=== PATIENT | female | born 1955 | race Caucasian/White ===

== ENCOUNTER → 2017-05-19 | Outpatient (CLI) | payer OTHER | LOC: M CLY 11:25 | DX: M75.41 Impingement syndrome of right shoulder (principal) | CPT/HCPCS: 73030 ==

== ENCOUNTER → 2017-05-19 | Outpatient (CLI) | payer OTHER | LOC: M CLY 11:17 | DX: Z53.9 Procedure and treatment not carried out, unspecified reason (principal) ==

== ENCOUNTER → 2018-11-18 | Outpatient (REF) | payer BC | LOC: M SFHCCLAY 16:11 | PROVIDERS: ATTEND Family Medicine | DX: Z98.84 Bariatric surgery status (principal); E53.8 Deficiency of other specified B group vitamins; Z53.9 Procedure and treatment not carried out, unspecified reason ==

== ENCOUNTER → 2018-11-19 | Outpatient (REF) | payer BC ==
[2018-11-19 17:06] LABS: ALBUMIN 3.3 GM/DL (3.2-5.2); ALT/SGPT 17 U/L (12-78); BILIRUBIN,TOTAL 0.2 MG/DL (0.2-1.0); BLOOD UREA NITROGEN 10 MG/DL (7-18); CALCIUM LEVEL 9.2 MG/DL (8.8-10.2); CARBON DIOXIDE LEVEL 29 MEQ/L (21-32); CHLORIDE LEVEL 109 MEQ/L (98-107); CHOLESTEROL LEVEL 190 MG/DL (<200); CHOLESTEROL RISK RATIO 3.333 (<5); CREATININE FOR GFR 0.92 MG/DL (0.55-1.30); GLOMERULAR FILTRATION RATE > 60.0 (>45); GLUCOSE, FASTING 129 MG/DL (70-100); HDL CHOLESTEROL 57 MG/DL (>40); IRON (FE) 28 UG/DL (50-170); LDL CHOLESTEROL 104 MG/DL (<100); NON-HDL-C 133 MG/DL; POTASSIUM SERUM 4.2 MEQ/L (3.5-5.1); SODIUM LEVEL 143 MEQ/L (136-145); TOTAL PROTEIN 6.5 GM/DL (6.4-8.2); TRIGLYCERIDES LEVEL 147 MG/DL (<150)
[2018-11-19 17:13] LABS: VITAMIN B12 LEVEL 161 PG/ML (247-911)
[2018-11-19 17:14] LABS: FOLATE > 24.0 NG/ML (>5.4)
[2018-11-19 17:19] LABS: BASO % 0.1 % (0.0-1.0); EOS # 0.1 10^3/uL (0.0-0.5); EOS % 0.9 % (0.0-3.0); HEMATOCRIT 40.5 % (36.0-47.0); HEMOGLOBIN 12.3 g/dl (12.0-15.5); LYMPH # 2.2 10^3/uL (1.5-5.0); LYMPH % 31.6 % (24.0-44.0); MEAN CORPUSCULAR HEMOGLOBIN 26.9 pg (27.0-33.0); MEAN CORPUSCULAR HGB CONC 30.4 g/dl (32.0-36.5); MEAN CORPUSCULAR VOLUME 88.6 fl (80.0-96.0); MONO # 0.4 10^3/uL (0.0-0.8); MONO % 6.1 % (0.0-5.0); NEUTROPHILS # 4.2 10^3/uL (1.5-8.5); NEUTROPHILS % 61.2 % (36.0-66.0); PLATELET COUNT, AUTOMATED 313 10^3/uL (150-450); RED BLOOD COUNT 4.57 10^6/uL (4.00-5.40); WHITE BLOOD COUNT 6.9 10^3/uL (4.0-10.0)
[2018-11-19 17:32] LABS: HEMOGLOBIN A1c 5.8 %
== END ==
LOC: M SFHCCLAY 13:12
PROVIDERS: ATTEND Family Medicine
DX: Z98.84 Bariatric surgery status (principal); E53.8 Deficiency of other specified B group vitamins

== ENCOUNTER → 2019-11-29 | Outpatient (REF) | payer BC ==
[2019-11-29 17:00] LABS: BASO % 0.3 % (0.0-1.0); EOS # 0.1 10^3/uL (0.0-0.5); EOS % 0.9 % (0.0-3.0); HEMATOCRIT 39.2 % (36.0-47.0); HEMOGLOBIN 11.5 g/dl (12.0-15.5); LYMPH # 2.4 10^3/uL (1.5-5.0); LYMPH % 36.7 % (24.0-44.0); MEAN CORPUSCULAR HEMOGLOBIN 23.6 pg (27.0-33.0); MEAN CORPUSCULAR HGB CONC 29.3 g/dl (32.0-36.5); MEAN CORPUSCULAR VOLUME 80.3 fl (80.0-96.0); MONO # 0.5 10^3/uL (0.0-0.8); NEUTROPHILS # 3.6 10^3/uL (1.5-8.5); NEUTROPHILS % 54.6 % (36.0-66.0); PLATELET COUNT, AUTOMATED 364 10^3/uL (150-450); RED BLOOD COUNT 4.88 10^6/uL (4.00-5.40); WHITE BLOOD COUNT 6.6 10^3/uL (4.0-10.0)
[2019-11-29 17:09] LABS: ALBUMIN 3.5 GM/DL (3.2-5.2); ALT/SGPT 22 U/L (12-78); BILIRUBIN,TOTAL 0.2 MG/DL (0.2-1.0); BLOOD UREA NITROGEN 11 MG/DL (7-18); CARBON DIOXIDE LEVEL 29 MEQ/L (21-32); CHLORIDE LEVEL 106 MEQ/L (98-107); CHOLESTEROL LEVEL 185 MG/DL (<200); CHOLESTEROL RISK RATIO 3.083 (<5); CREATININE FOR GFR 0.88 MG/DL (0.55-1.30); FERRITIN 6 NG/ML (8-252); GLOMERULAR FILTRATION RATE > 60.0 (>45); GLUCOSE, FASTING 93 MG/DL (70-100); HDL CHOLESTEROL 60 MG/DL (>40); IRON (FE) 28 UG/DL (50-170); LDL CHOLESTEROL 80 MG/DL (<100); NON-HDL-C 125 MG/DL; PERCENT SATURATION 6.9 % (13.2-45.0); POTASSIUM SERUM 4.4 MEQ/L (3.5-5.1); SODIUM LEVEL 139 MEQ/L (136-145); TOTAL IRON BINDING CAPACITY 406 UG/DL (250-450); TOTAL PROTEIN 6.8 GM/DL (6.4-8.2); TRIGLYCERIDES LEVEL 225 MG/DL (<150)
[2019-11-30 09:03] LABS: TOTAL 25(OH) VITAMIN D 51.2 NG/ML (30.0-100.0)
[2019-11-30 09:04] LABS: FOLATE > 24.0 NG/ML (>5.4); VITAMIN B12 LEVEL 148 PG/ML (247-911)
== END ==
LOC: M SFHCCLAY 16:32
PROVIDERS: ATTEND Family Medicine
DX: E53.8 Deficiency of other specified B group vitamins (principal); D64.9 Anemia, unspecified; Z98.84 Bariatric surgery status

== ENCOUNTER → 2020-06-18 | Outpatient (CLI) | payer BC ==
--- NOTE | 2020-06-19 02:19 | REP ---
INDICATION: PAIN. COMPARISON: None. TECHNIQUE: AP and weight-bearing lateral views of the mid/hindfoot FINDINGS: Osseous structures demonstrate age-related osteopenia and generalized degenerative changes with cortical irregularities, joint space narrowing, and subtle spurring noted through the midfoot level. Lateral view suggests an element of mild pes planus along with a small to moderate calcaneal heel spur and calcifications along the distal aspect of the Achilles tendon and insertion on the calcaneus. IMPRESSION: Age-related osteopenia and degenerative changes as noted above. <Electronically signed by Pasha Dillard > 06/19/20 0746
== END ==
LOC: M SOG 14:18
PROVIDERS: ATTEND Family Medicine
DX: M85.872 Other specified disorders of bone density and structure, left ankle and foot (principal)

== ENCOUNTER → 2020-12-25 | Outpatient (REF) | payer BC ==
[2020-12-26 11:47] LABS: BASO % 0.3 % (0.0-1.0); EOS % 0.6 % (0.0-3.0); HEMATOCRIT 44.5 % (36.0-47.0); HEMOGLOBIN 14.1 g/dl (12.0-15.5); LYMPH # 2.4 10^3/uL (1.5-5.0); LYMPH % 33.4 % (24.0-44.0); MEAN CORPUSCULAR HEMOGLOBIN 30.5 pg (27.0-33.0); MEAN CORPUSCULAR HGB CONC 31.7 g/dl (32.0-36.5); MEAN CORPUSCULAR VOLUME 96.1 fl (80.0-96.0); MONO # 0.4 10^3/uL (0.0-0.8); MONO % 5.8 % (2.0-8.0); NEUTROPHILS # 4.2 10^3/uL (1.5-8.5); NEUTROPHILS % 59.8 % (36.0-66.0); PLATELET COUNT, AUTOMATED 297 10^3/uL (150-450); RED BLOOD COUNT 4.63 10^6/uL (4.00-5.40)
[2020-12-26 12:10] LABS: HEMOGLOBIN A1c 5.2 %
[2020-12-26 12:26] LABS: ALBUMIN 3.2 GM/DL (3.2-5.2); ALT/SGPT 27 U/L (12-78); BILIRUBIN,TOTAL 0.3 MG/DL (0.2-1.0); BLOOD UREA NITROGEN 9 MG/DL (7-18); CALCIUM LEVEL 8.5 MG/DL (8.8-10.2); CARBON DIOXIDE LEVEL 29 MEQ/L (21-32); CHLORIDE LEVEL 108 MEQ/L (98-107); CHOLESTEROL LEVEL 144 MG/DL (<200); CHOLESTEROL RISK RATIO 2.526 (<5); CREATININE FOR GFR 0.98 MG/DL (0.55-1.30); FERRITIN 221 NG/ML (8-252); GLOMERULAR FILTRATION RATE > 60.0 (>45); GLUCOSE, FASTING 96 MG/DL (70-100); HDL CHOLESTEROL 57 MG/DL (>40); IRON (FE) 60 UG/DL (50-170); LDL CHOLESTEROL 68 MG/DL (<100); MAGNESIUM LEVEL 1.8 MG/DL (1.8-2.4); NON-HDL-C 87 MG/DL; POTASSIUM SERUM 6.1 MEQ/L (3.5-5.1); SODIUM LEVEL 138 MEQ/L (136-145); TOTAL PROTEIN 6.5 GM/DL (6.4-8.2); TRIGLYCERIDES LEVEL 97 MG/DL (<150); VITAMIN B12 LEVEL 863 PG/ML (247-911)
== END ==
LOC: M SFHCCLAY 14:13
PROVIDERS: ATTEND Family Medicine
DX: D50.8 Other iron deficiency anemias (principal); Z98.84 Bariatric surgery status

== ENCOUNTER → 2021-03-28 | Outpatient (CLI) | payer BC | LOC: M SOG 08:07 | PROVIDERS: ATTEND Orthopaedic Surgery Adult Reconstructive Orthopaedic Surgery | DX: M25.762 Osteophyte, left knee (principal); M25.761 Osteophyte, right knee ==

== ENCOUNTER → 2021-11-20 | Outpatient (CLI) | payer BC | LOC: M SOG 11:54 | PROVIDERS: ATTEND Orthopaedic Surgery Adult Reconstructive Orthopaedic Surgery | DX: M17.0 Bilateral primary osteoarthritis of knee (principal) ==

== ENCOUNTER 2021-12-04 09:25 | Outpatient (RCR) | payer BC | END 2021-12-13 | LOC: M PT 09:25 | PROVIDERS: ATTEND Orthopaedic Surgery Adult Reconstructive Orthopaedic Surgery | DX: M17.12 Unilateral primary osteoarthritis, left knee (principal) ==

== ENCOUNTER → 2021-12-16 | Outpatient (REF) | payer BC ==
[2021-12-16 17:34] LABS: BASO % 0.3 % (0.0-1.0); EOS # 0.1 10^3/uL (0.0-0.5); EOS % 0.8 % (0.0-3.0); HEMATOCRIT 43.4 % (36.0-47.0); HEMOGLOBIN 13.5 g/dl (12.0-15.5); LYMPH # 2.4 10^3/uL (1.5-5.0); LYMPH % 32.1 % (24.0-44.0); MEAN CORPUSCULAR HEMOGLOBIN 30.4 pg (27.0-33.0); MEAN CORPUSCULAR HGB CONC 31.1 g/dl (32.0-36.5); MEAN CORPUSCULAR VOLUME 97.7 fl (80.0-96.0); MONO # 0.5 10^3/uL (0.0-0.8); MONO % 6.6 % (2.0-8.0); NEUTROPHILS # 4.5 10^3/uL (1.5-8.5); NEUTROPHILS % 60.1 % (36.0-66.0); PLATELET COUNT, AUTOMATED 309 10^3/uL (150-450); RED BLOOD COUNT 4.44 10^6/uL (4.00-5.40); WHITE BLOOD COUNT 7.5 10^3/uL (4.0-10.0)
[2021-12-16 18:30] LABS: ALBUMIN 3.2 GM/DL (3.2-5.2); ALT/SGPT 18 U/L (12-78); BILIRUBIN,TOTAL 0.2 MG/DL (0.2-1.0); BLOOD UREA NITROGEN 7 MG/DL (7-18); CALCIUM LEVEL 8.9 MG/DL (8.8-10.2); CARBON DIOXIDE LEVEL 29 MEQ/L (21-32); CHLORIDE LEVEL 106 MEQ/L (98-107); CHOLESTEROL LEVEL 175 MG/DL (<200); CREATININE FOR GFR 0.88 MG/DL (0.55-1.30); GLOMERULAR FILTRATION RATE > 60.0 (>45); GLUCOSE, FASTING 91 MG/DL (70-100); HDL CHOLESTEROL 57 MG/DL (>40); IRON (FE) 68 UG/DL (50-170); NON-HDL-C 118 MG/DL; POTASSIUM SERUM 4.3 MEQ/L (3.5-5.1); SODIUM LEVEL 138 MEQ/L (136-145); TOTAL PROTEIN 6.5 GM/DL (6.4-8.2)
[2021-12-16 18:38] LABS: HEMOGLOBIN A1c 5.3 %
[2021-12-16 18:43] LABS: LDL CHOLESTEROL 76 MG/DL (<100); TRIGLYCERIDES LEVEL 209 MG/DL (<150)
[2021-12-16 20:09] LABS: VITAMIN B12 LEVEL 326 PG/ML (247-911)
== END ==
LOC: M SFHCCLAY 09:37
PROVIDERS: ATTEND Family Medicine
DX: D50.8 Other iron deficiency anemias (principal); E53.8 Deficiency of other specified B group vitamins; Z98.84 Bariatric surgery status

== ENCOUNTER → 2021-12-29 | Outpatient (CLI) | payer BC ==
[~2021-12-29] MED LIST: BUPR-71 PO; DICL1GEL3; ESCI5SOL3 PO; NICO1DIS12 TD; OMEP40CA5 PO; VITMTA PO; XARE20TA PO
== END ==
LOC: M LABSMTC 09:36
PROVIDERS: ATTEND Anesthesiology
DX: Z01.812 Encounter for preprocedural laboratory examination (principal); Z11.52 Encounter for screening for COVID-19

== ENCOUNTER 2021-12-31 06:07 | Inpatient (IN) | payer BC ==
[~2021-12-31] VITALS: Ht 162.6 cm; Wt 80.2 kg
[~2021-12-31 06:07] MED LIST changes: +ACETAMINOPHEN 500 MG TAB PO ONE; +NAPROXEN 250 MG TAB PO ONE; +NS 1,000 ML IV ONE; +PREGABALIN 25 MG CAP (LYRICA) PO ONE; +ROPIVA 125MG/EPINEPH 0.25MG/CLONID 40MCG/KETOR 15MG IN NS 50ML SYRINGE PA ONE; +TRANEXAMIC ACID INJection 1,000 MG in NS 60 ML IV ONE; +ceFAZolin SOD 2 GM in IV 1 EA IV ONE; +dexameTHASONE 4 MG/ML 1ML VIAL (J1100 PER 1MG) IV ONE
[2021-12-31] MEDS ORDERED: LR 1,000 ML IV SCH ×3 (06:35→12:35)
[2021-12-31] MEDS ORDERED: TRANEXAMIC ACID 100 MG/ML 10ML VIAL As Ordered ONE (07:24)
[2021-12-31] MEDS ORDERED: fentaNYL 100 MCG/2 ML INJECTION As Ordered ONE (08:03)
[2021-12-31] MEDS ORDERED: propofoL 200 MG/20 ML VIAL As Ordered ONE ×3 (08:03→09:09)
[2021-12-31] MEDS ORDERED: dexameTHASONE 4 MG/ML 1ML VIAL (J1100 PER 1MG) As Ordered ONE (08:03)
[2021-12-31] MEDS ORDERED: MIDAZOLAM INJ 2MG/2ML VIAL (J2250 PER 1MG) As Ordered ONE (08:03)
[2021-12-31] MEDS ORDERED: ONDANSETRON 4MG 2ML VIAL As Ordered ONE (08:03)
[2021-12-31] MEDS ORDERED: PHENYLephrine 500MCG 5ML (100MCG/ML) SYRINGE As Ordered ONE (08:06)
[2021-12-31] MEDS ORDERED: ePHEDrine SULFATE 25 MG/5 ML(5MG/ML) SYRINGE As Ordered ONE (08:08)
[2021-12-31] MEDS ORDERED: oxyCODONE 5MG TAB PO PRN (10:00)
[2021-12-31] MEDS ORDERED: ONDANSETRON 4MG 2ML VIAL IV PRN ×2 (10:00→13:00)
[2021-12-31] MEDS ORDERED: MEPERIDINE INJ 25 MG/ML VIAL (J2175) IV PRN (10:00)
[2021-12-31] MEDS ORDERED: fentaNYL 100 MCG/2 ML INJECTION IV PRN (10:00)
[2021-12-31] MEDS ORDERED: ACETAMINOPHEN TAB 650MG DOSE (2X325MG) PO PRN (12:00)
[2021-12-31] MEDS ORDERED: MAALOX 30 ML SUSP *UDC PO PRN (12:00)
[2021-12-31] MEDS ORDERED: MOM 30ML SUSPENSION UDC PO PRN (12:00)
[2021-12-31] MEDS ORDERED: HOME MED LIST COMPLETE! XX SCH ×2 (12:25→12:40)
[2021-12-31] MEDS ORDERED: LEXA5TAB13 PO (12:25)
[2021-12-31] MEDS ORDERED: SENNA 8.6 MG TAB (SENOKOT) PO PRN (13:00)
[2021-12-31] MEDS ORDERED: traMADol 50 MG TAB PO PRN (13:00)
[2021-12-31 14:20] VITALS: BP 122/61
[2021-12-31 14:50] VITALS: BP 111/62
[2021-12-31 15:50] VITALS: BP 102/58
[2021-12-31] MEDS: NICOTINE 21MG/24HR 1 EA TRANSDERMAL TD SCH (16:02)
[2021-12-31] MEDS: ceFAZolin SOD 2 GM in IV 1 EA IV SCH (16:03)
[2021-12-31] MEDS: oxyCODONE 5MG TAB PO PRN ×2 (16:12→22:54)
[2021-12-31 17:50] VITALS: BP 107/55
[2021-12-31] MEDS: ACETAMINOPHEN TAB 650MG DOSE (2X325MG) PO SCH (18:33)
[2021-12-31] MEDS: NAPROXEN 250 MG TAB PO SCH (18:36)
[2021-12-31 18:50] VITALS: BP 105/56
[2021-12-31 20:30] VITALS: BP 101/54
[2021-12-31] MEDS: DOCUSATE SODIUM 100MG CAPSULE PO SCH (20:38)
[2021-12-31] MEDS: buPROPion **SR TABLET** (ZYBAN) 150MG PO SCH (20:38)
[2021-12-31] MEDS ORDERED: DOCUSATE SODIUM 100MG CAPSULE PO SCH (21:00)
[2022-01-01] MEDS: ACETAMINOPHEN TAB 650MG DOSE (2X325MG) PO SCH ×2 (00:23→06:20)
[2022-01-01] MEDS: ceFAZolin SOD 2 GM in IV 1 EA IV SCH (00:23)
[2022-01-01 02:00] VITALS: BP 108/56
[2022-01-01] MEDS: oxyCODONE 5MG TAB PO PRN ×2 (03:23→09:52)
[2022-01-01 05:11] VITALS: BP 110/58
[2022-01-01] MEDS: NAPROXEN 250 MG TAB PO SCH (06:21)
[2022-01-01 07:33] LABS: EOS % 0.2 % (0.0-3.0); HEMATOCRIT 37.2 % (36.0-47.0); HEMOGLOBIN 11.6 g/dl (12.0-15.5); LYMPH # 3.1 10^3/uL (1.5-5.0); LYMPH % 35.4 % (24.0-44.0); MEAN CORPUSCULAR HEMOGLOBIN 29.9 pg (27.0-33.0); MEAN CORPUSCULAR HGB CONC 31.2 g/dl (32.0-36.5); MEAN CORPUSCULAR VOLUME 95.9 fl (80.0-96.0); MONO # 0.7 10^3/uL (0.0-0.8); MONO % 7.7 % (2.0-8.0); NEUTROPHILS % 56.5 % (36.0-66.0); PLATELET COUNT, AUTOMATED 247 10^3/uL (150-450); RED BLOOD COUNT 3.88 10^6/uL (4.00-5.40); WHITE BLOOD COUNT 8.8 10^3/uL (4.0-10.0)
[2022-01-01 08:52] LABS: BLOOD UREA NITROGEN 8 MG/DL (7-18); CALCIUM LEVEL 8.4 MG/DL (8.8-10.2); CARBON DIOXIDE LEVEL 27 MEQ/L (21-32); CHLORIDE LEVEL 107 MEQ/L (98-107); CREATININE FOR GFR 0.84 MG/DL (0.55-1.30); GLOMERULAR FILTRATION RATE > 60.0 (>45); GLUCOSE, FASTING 104 MG/DL (70-100); MAGNESIUM LEVEL 1.8 MG/DL (1.8-2.4); POTASSIUM SERUM 3.8 MEQ/L (3.5-5.1); SODIUM LEVEL 141 MEQ/L (136-145)
[2022-01-01] MEDS ORDERED: MULTIVITAMINS/MINERALS THERAP 1 TAB PO SCH (09:00)
[2022-01-01] MEDS ORDERED: FERROUS SULFATE 325MG TAB PO SCH (09:00)
[2022-01-01] MEDS ORDERED: OMEPRAZOLE 20MG CAP PO SCH (09:00)
[2022-01-01] MEDS ORDERED: ASCORBIC ACID 500 MG TAB PO SCH (09:00)
[2022-01-01] MEDS: DOCUSATE SODIUM 100MG CAPSULE PO SCH (09:00)
[2022-01-01] MEDS ORDERED: NICOTINE 21MG/24HR 1 EA TRANSDERMAL TD SCH (09:00)
[2022-01-01] MEDS ORDERED: ESCITALOPRAM OXALATE 5MG TABLET (LEXAPRO) PO SCH (09:00)
[2022-01-01] MEDS: NICOTINE 21MG/24HR 1 EA TRANSDERMAL TD SCH (09:51)
[2022-01-01] MEDS: buPROPion **SR TABLET** (ZYBAN) 150MG PO SCH (09:54)
[2022-01-01] MEDS ORDERED: COLA100C5 PO (10:31)
[2022-01-01] MEDS ORDERED: OXYC-517 PO (10:31)
[2022-01-01] MEDS ORDERED: FERR1TAB8 PO (10:31)
[2022-01-01] MEDS ORDERED: ASCO50TA PO (10:31)
[2022-01-01] MEDS ORDERED: RIVAROXABAN 20MG TAB (XARELTO) PO SCH (18:00)
== END 2022-01-01 11:35 | disposition home health service (06) | DRG 302 ==
LOC: M SDC 06:07 → M ED INP 12:00 → M MS5PR 14:06
PROVIDERS: ADMIT Internal Medicine; ATTEND Internal Medicine
PROC: 0SRD0JZ Replacement of Left Knee Joint with Synthetic Substitute, Open Approach (ICD-10-PCS; principal; 2021-12-31 07:30)
DX: M17.12 Unilateral primary osteoarthritis, left knee (principal); M32.9 Systemic lupus erythematosus, unspecified; E66.01 Morbid (severe) obesity due to excess calories; K21.9 Gastro-esophageal reflux disease without esophagitis; F32.A Depression, unspecified; Z86.718 Personal history of other venous thrombosis and embolism; Z86.711 Personal history of pulmonary embolism; Z79.01 Long term (current) use of anticoagulants; Z68.30 Body mass index [BMI] 30.0-30.9, adult; Z88.2 Allergy status to sulfonamides; Z79.899 Other long term (current) drug therapy

== ENCOUNTER → 2022-01-04 | Outpatient (REF) | payer BC ==
[~2022-01-04] MED LIST changes: -ACETAMINOPHEN 500 MG TAB PO ONE; +ASCO50TA PO; +COLA100C5 PO; +FERR1TAB8 PO; +LEXA5TAB13 PO; -NAPROXEN 250 MG TAB PO ONE; -NS 1,000 ML IV ONE; +OXYC-517 PO; -PREGABALIN 25 MG CAP (LYRICA) PO ONE; -ROPIVA 125MG/EPINEPH 0.25MG/CLONID 40MCG/KETOR 15MG IN NS 50ML SYRINGE PA ONE; -TRANEXAMIC ACID INJection 1,000 MG in NS 60 ML IV ONE; -ceFAZolin SOD 2 GM in IV 1 EA IV ONE; -dexameTHASONE 4 MG/ML 1ML VIAL (J1100 PER 1MG) IV ONE
[2022-01-04 11:51] LABS: HEMATOCRIT 37.4 % (36.0-47.0); HEMOGLOBIN 11.8 g/dl (12.0-15.5); MEAN CORPUSCULAR HEMOGLOBIN 30.3 pg (27.0-33.0); MEAN CORPUSCULAR HGB CONC 31.6 g/dl (32.0-36.5); MEAN CORPUSCULAR VOLUME 95.9 fl (80.0-96.0); PLATELET COUNT, AUTOMATED 299 10^3/uL (150-450); WHITE BLOOD COUNT 8.9 10^3/uL (4.0-10.0)
== END ==
LOC: M SHH 11:35
PROVIDERS: ATTEND Orthopaedic Surgery Adult Reconstructive Orthopaedic Surgery
DX: Z79.899 Other long term (current) drug therapy (principal)

== ENCOUNTER → 2022-01-13 | Outpatient (CLI) | payer BC | LOC: M SOG 07:56 | PROVIDERS: ATTEND Orthopaedic Surgery Adult Reconstructive Orthopaedic Surgery | DX: Z96.652 Presence of left artificial knee joint (principal) ==

== ENCOUNTER → 2023-02-02 | Outpatient (REF) | payer MEDICARE ==
[~2023-02-02] MED LIST changes: +DICL100G10; -DICL1GEL3
[2023-02-02 17:27] LABS: HEMATOCRIT 46.3 % (36.0-47.0); HEMOGLOBIN 14.6 g/dl (12.0-15.5); MEAN CORPUSCULAR HEMOGLOBIN 29.8 pg (27.0-33.0); MEAN CORPUSCULAR HGB CONC 31.5 g/dl (32.0-36.5); MEAN CORPUSCULAR VOLUME 94.5 fl (80.0-96.0); PLATELET COUNT, AUTOMATED 358 10^3/uL (150-450); WHITE BLOOD COUNT 7.3 10^3/uL (4.0-10.0)
[2023-02-02 17:53] LABS: HEMOGLOBIN A1c 4.7 % (4.0-6.0)
[2023-02-02 17:56] LABS: TOTAL IRON BINDING CAPACITY 294 UG/DL (250-425)
[2023-02-02 17:57] LABS: ALBUMIN 3.5 G/DL (3.2-5.2); ALKALINE PHOSPHATASE 137 U/L (46-116); ALT/SGPT 16 U/L (7.0-40); AST/SGOT 15 U/L (<34); BILIRUBIN,TOTAL 0.2 MG/DL (0.3-1.2); BLOOD UREA NITROGEN 7 MG/DL (9-23); CALCIUM LEVEL 9.3 MG/DL (8.3-10.6); CARBON DIOXIDE LEVEL 26 MMOL/L (20-31); CHLORIDE LEVEL 108 MMOL/L (98-107); CHOLESTEROL LEVEL 204 MG/DL (<200); CHOLESTEROL RISK RATIO 3.12 (<5); CREATININE FOR GFR 0.72 MG/DL (0.55-1.30); GLOMERULAR FILTRATION RATE > 60.0 (>45); GLUCOSE, FASTING 86 MG/DL (74-106); HDL CHOLESTEROL 65.3 MG/DL (>40); IRON (FE) 38 UG/DL (50-170); LDL CHOLESTEROL 106.7 MG/DL (<100); MAGNESIUM LEVEL 1.9 MG/DL (1.8-2.4); NON-HDL-C 138.7 MG/DL; PERCENT SATURATION 12.9 % (13.2-45.0); POTASSIUM SERUM 4.5 MMOL/L (3.5-5.1); SODIUM LEVEL 140 MMOL/L (136-145); TOTAL PROTEIN 6.6 G/DL (5.7-8.2); TRIGLYCERIDES LEVEL 160 MG/DL (<150)
[2023-02-02 17:58] LABS: FOLATE > 24.00 NG/ML (>5.4); VITAMIN B12 LEVEL 228 PG/ML (211-911)
== END ==
LOC: M SFHCCLAY 11:56
PROVIDERS: ATTEND Family Medicine
DX: D50.8 Other iron deficiency anemias (principal); Z98.84 Bariatric surgery status; Z79.899 Other long term (current) drug therapy

== ENCOUNTER → 2023-05-06 | Outpatient (CLI) | payer MEDICARE | LOC: M CLY 10:59 | PROVIDERS: ATTEND Physician Assistant | DX: S69.92XA Unspecified injury of left wrist, hand and finger(s), initial encounter (principal); R22.32 Localized swelling, mass and lump, left upper limb; Y92.9 Unspecified place or not applicable; Y93.9 Activity, unspecified; Y99.9 Unspecified external cause status; X58.XXXA Exposure to other specified factors, initial encounter ==

== ENCOUNTER → 2023-05-12 | Outpatient (CLI) | payer MEDICARE | LOC: M CLY 13:51 | PROVIDERS: ATTEND Family Medicine | DX: M79.602 Pain in left arm (principal) ==

== ENCOUNTER → 2023-05-12 | Outpatient (CLI) | payer MEDICARE | LOC: M RAD 15:24 | PROVIDERS: ATTEND Family Medicine | DX: M79.89 Other specified soft tissue disorders (principal) ==

== ENCOUNTER → 2023-05-12 | Outpatient (CLI) | payer MEDICARE | LOC: M CLY 14:01 | PROVIDERS: ATTEND Family Medicine | DX: M79.602 Pain in left arm (principal) ==

== ENCOUNTER → 2023-06-02 | Outpatient (REF) | payer MEDICARE ==
[2023-06-02 11:33] LABS: BASO % 0.3 % (0.0-1.0); EOS % 0.6 % (0.0-3.0); HEMOGLOBIN 14.8 g/dl (12.0-15.5); LYMPH # 2.2 10^3/uL (1.5-5.0); LYMPH % 32.5 % (24.0-44.0); MEAN CORPUSCULAR HEMOGLOBIN 29.9 pg (27.0-33.0); MEAN CORPUSCULAR HGB CONC 32.2 g/dl (32.0-36.5); MEAN CORPUSCULAR VOLUME 92.9 fl (80.0-96.0); MONO # 0.5 10^3/uL (0.0-0.8); MONO % 7.1 % (2.0-8.0); NEUTROPHILS % 59.2 % (36.0-66.0); PLATELET COUNT, AUTOMATED 333 10^3/uL (150-450); RED BLOOD COUNT 4.95 10^6/uL (4.00-5.40); WHITE BLOOD COUNT 6.8 10^3/uL (4.0-10.0)
[2023-06-02 11:38] LABS: ERYTHROCYTE SEDIMENTATION RATE 26 mm/hr (0-30)
[2023-06-02 11:48] LABS: INR 1.53; PROTHROMBIN TIME 17.9 SECONDS (12.5-14.5)
[2023-06-02 11:54] LABS: URIC ACID 2.8 MG/DL (3.1-7.8)
[2023-06-02 11:55] LABS: C REACTIVE PROTEIN QUANTITATIV < 0.40 MG/DL (<1.0)
[2023-06-02 11:57] LABS: ALBUMIN 3.2 G/DL (3.2-5.2); ALKALINE PHOSPHATASE 121 U/L (46-116); ALT/SGPT 15 U/L (7.0-40); AST/SGOT 14 U/L (<34); BILIRUBIN,TOTAL 0.3 MG/DL (0.3-1.2); BLOOD UREA NITROGEN 11 MG/DL (9-23); CALCIUM LEVEL 8.7 MG/DL (8.3-10.6); CARBON DIOXIDE LEVEL 30 MMOL/L (20-31); CHLORIDE LEVEL 109 MMOL/L (98-107); CREATININE FOR GFR 0.74 MG/DL (0.55-1.30); GLOMERULAR FILTRATION RATE > 60.0 (>45); GLUCOSE, FASTING 92 MG/DL (74-106); POTASSIUM SERUM 4.5 MMOL/L (3.5-5.1); SODIUM LEVEL 137 MMOL/L (136-145); TOTAL PROTEIN 6.1 G/DL (5.7-8.2)
[2023-06-02 11:59] LABS: RHEUMATOID FACTOR QUANT 10.9 IU/ML (<14)
[2023-06-04 01:17] LABS: ANA (HEP2) Negative (.); CYCLIC CITRULLINATED PEPTIDE < 1 units (0-19)
== END ==
LOC: M SFHCCLAY 08:45
PROVIDERS: ATTEND Family Medicine
DX: M79.602 Pain in left arm (principal); M79.89 Other specified soft tissue disorders; Z86.718 Personal history of other venous thrombosis and embolism

== ENCOUNTER → 2023-12-03 | Outpatient (REF) | payer MEDICARE ==
[2023-12-03 17:06] LABS: HEMATOCRIT 45.8 % (36.0-47.0); HEMOGLOBIN 15.6 g/dl (12.0-15.5); MEAN CORPUSCULAR HGB CONC 34.1 g/dl (32.0-36.5); MEAN CORPUSCULAR VOLUME 88.1 fl (80.0-96.0); PLATELET COUNT, AUTOMATED 363 10^3/uL (150-450); WHITE BLOOD COUNT 12.9 10^3/uL (4.0-10.0)
[2023-12-03 17:14] LABS: ALBUMIN 3.2 G/DL (3.2-5.2); ALKALINE PHOSPHATASE 113 U/L (46-116); ALT/SGPT 24 U/L (7.0-40); AST/SGOT 18 U/L (<34); BILIRUBIN,TOTAL 0.2 MG/DL (0.3-1.2); BLOOD UREA NITROGEN 23 MG/DL (9-23); CALCIUM LEVEL 9.2 MG/DL (8.3-10.6); CARBON DIOXIDE LEVEL 29 MMOL/L (20-31); CHLORIDE LEVEL 103 MMOL/L (98-107); CREATININE FOR GFR 0.95 MG/DL (0.55-1.30); GLOMERULAR FILTRATION RATE > 60.0 (>45); GLUCOSE, FASTING 106 MG/DL (74-106); SODIUM LEVEL 134 MMOL/L (136-145); TOTAL PROTEIN 6.6 G/DL (5.7-8.2)
== END ==
LOC: M SFHCCLAY 10:26
PROVIDERS: ATTEND Physician Assistant
DX: E87.1 Hypo-osmolality and hyponatremia (principal)

== ENCOUNTER → 2023-12-07 | Outpatient (REF) | payer MEDICARE ==
[2023-12-07 18:41] LABS: BASO % 0.2 % (0.0-1.0); EOS % 0.4 % (0.0-3.0); HEMATOCRIT 40.9 % (36.0-47.0); LYMPH # 2.2 10^3/uL (1.5-5.0); LYMPH % 23.3 % (24.0-44.0); MEAN CORPUSCULAR HEMOGLOBIN 30.4 pg (27.0-33.0); MEAN CORPUSCULAR HGB CONC 34.2 g/dl (32.0-36.5); MEAN CORPUSCULAR VOLUME 88.7 fl (80.0-96.0); MONO # 0.7 10^3/uL (0.0-0.8); MONO % 7.5 % (2.0-8.0); NEUTROPHILS # 6.4 10^3/uL (1.5-8.5); NEUTROPHILS % 68.3 % (36.0-66.0); PLATELET COUNT, AUTOMATED 392 10^3/uL (150-450); RED BLOOD COUNT 4.61 10^6/uL (4.00-5.40); WHITE BLOOD COUNT 9.3 10^3/uL (4.0-10.0)
[2023-12-07 19:16] LABS: ALBUMIN 2.8 G/DL (3.2-5.2); ALKALINE PHOSPHATASE 94 U/L (46-116); ALT/SGPT 21 U/L (7.0-40); AST/SGOT 23 U/L (<34); BILIRUBIN,TOTAL < 0.2 MG/DL (0.3-1.2); BLOOD UREA NITROGEN 19 MG/DL (9-23); CALCIUM LEVEL 8.4 MG/DL (8.3-10.6); CARBON DIOXIDE LEVEL 29 MMOL/L (20-31); CHLORIDE LEVEL 107 MMOL/L (98-107); CREATININE FOR GFR 0.87 MG/DL (0.55-1.30); GLOMERULAR FILTRATION RATE > 60.0 (>45); GLUCOSE, FASTING 80 MG/DL (74-106); POTASSIUM SERUM 3.2 MMOL/L (3.5-5.1); SODIUM LEVEL 140 MMOL/L (136-145); TOTAL PROTEIN 5.9 G/DL (5.7-8.2)
== END ==
LOC: M SFHCCLAY 10:59
PROVIDERS: ATTEND Family Medicine
DX: K52.9 Noninfective gastroenteritis and colitis, unspecified (principal)

== ENCOUNTER → 2024-02-18 | Outpatient (REF) | payer MEDICARE ==
[2024-02-18 17:07] LABS: HEMATOCRIT 43.3 % (36.0-47.0); HEMOGLOBIN 13.9 g/dl (12.0-15.5); MEAN CORPUSCULAR HEMOGLOBIN 30.9 pg (27.0-33.0); MEAN CORPUSCULAR HGB CONC 32.1 g/dl (32.0-36.5); MEAN CORPUSCULAR VOLUME 96.2 fl (80.0-96.0); PLATELET COUNT, AUTOMATED 324 10^3/uL (150-450); WHITE BLOOD COUNT 7.4 10^3/uL (4.0-10.0)
[2024-02-18 17:30] LABS: VITAMIN B12 LEVEL 186 PG/ML (211-911)
[2024-02-18 17:31] LABS: THYROID STIMULATING HORMONE 1.241 uIU/ML (0.55-4.78)
[2024-02-18 17:32] LABS: IRON (FE) 32 UG/DL (50-170)
[2024-02-18 17:33] LABS: ALBUMIN 3.3 G/DL (3.2-5.2); ALKALINE PHOSPHATASE 112 U/L (35-104); ALT/SGPT 12 U/L (7.0-40); AST/SGOT 13 U/L (<34); BILIRUBIN,TOTAL < 0.2 MG/DL (0.3-1.2); BLOOD UREA NITROGEN 10 MG/DL (9-23); CALCIUM LEVEL 9.6 MG/DL (8.3-10.6); CARBON DIOXIDE LEVEL 25 MMOL/L (20-31); CHLORIDE LEVEL 107 MMOL/L (98-107); CREATININE FOR GFR 0.82 MG/DL (0.55-1.30); FOLATE 15.53 NG/ML (>5.4); GLOMERULAR FILTRATION RATE > 60.0 (>45); GLUCOSE, FASTING 93 MG/DL (74-106); POTASSIUM SERUM 4.6 MMOL/L (3.5-5.1); SODIUM LEVEL 139 MMOL/L (136-145); TOTAL PROTEIN 6.5 G/DL (5.7-8.2)
== END ==
LOC: M SFHCCLAY 15:06
PROVIDERS: ATTEND Family Medicine
DX: K52.9 Noninfective gastroenteritis and colitis, unspecified (principal); G62.9 Polyneuropathy, unspecified; Z79.899 Other long term (current) drug therapy; D50.8 Other iron deficiency anemias

== ENCOUNTER → 2024-04-01 | Outpatient (REF) | payer MEDICARE | LOC: M SFHCCLAY 09:57 | PROVIDERS: ATTEND Family Medicine | DX: E53.8 Deficiency of other specified B group vitamins (principal); D50.8 Other iron deficiency anemias ==

== ENCOUNTER → 2024-05-26 | Outpatient (REF) | payer MEDICARE ==
[2024-05-26 18:50] LABS: HEMATOCRIT 41.5 % (36.0-47.0); HEMOGLOBIN 13.2 g/dl (12.0-15.5); MEAN CORPUSCULAR HEMOGLOBIN 29.3 pg (27.0-33.0); MEAN CORPUSCULAR HGB CONC 31.8 g/dl (32.0-36.5); PLATELET COUNT, AUTOMATED 291 10^3/uL (150-450); RED BLOOD COUNT 4.51 10^6/uL (4.00-5.40); WHITE BLOOD COUNT 8.9 10^3/uL (4.0-10.0)
[2024-05-26 19:00] LABS: IRON (FE) 50 UG/DL (50-170)
[2024-05-26 19:02] LABS: VITAMIN B12 LEVEL 1210 PG/ML (211-911)
== END ==
LOC: M SFHCCLAY 10:08
PROVIDERS: ATTEND Family Medicine
DX: D50.8 Other iron deficiency anemias (principal); E53.8 Deficiency of other specified B group vitamins

== ENCOUNTER → 2024-07-15 | Outpatient (REF) | payer OTHER, MEDICAID ==
[2024-07-15 18:18] LABS: HEMATOCRIT 41.8 % (36.0-47.0); HEMOGLOBIN 13.1 g/dl (12.0-15.5); MEAN CORPUSCULAR HEMOGLOBIN 27.8 pg (27.0-33.0); MEAN CORPUSCULAR HGB CONC 31.3 g/dl (32.0-36.5); MEAN CORPUSCULAR VOLUME 88.6 fl (80.0-96.0); PLATELET COUNT, AUTOMATED 337 10^3/uL (150-450); RED BLOOD COUNT 4.72 10^6/uL (4.00-5.40)
== END ==
LOC: M SFHCCLAY 11:48
PROVIDERS: ATTEND Family Medicine
DX: D50.8 Other iron deficiency anemias (principal); E53.8 Deficiency of other specified B group vitamins

== ENCOUNTER → 2024-09-29 | Outpatient (REF) | payer OTHER, MEDICAID ==
[~2024-09-29] MED LIST changes: +ACET-683 PO; +BUDE3CAP PO; +DULO1CAP5 PO; +FERR325T3 PO; +PRED5TA; +TRAM50TA2 PO; +VITA100018 PO
[2024-09-29 13:55] LABS: PLATELET COUNT, AUTOMATED 456 10^3/uL (150-450)
[2024-09-29 14:04] LABS: IRON (FE) 23.0 UG/DL (50-170)
[2024-09-29 14:06] LABS: VITAMIN B12 LEVEL 843.0 PG/ML (211-911)
[2024-09-29 14:11] LABS: ALT/SGPT 16.0 U/L (7.0-40); AST/SGOT 20.0 U/L (<34); CALCIUM LEVEL 9.0 MG/DL (8.3-10.6); CARBON DIOXIDE LEVEL 30.0 MMOL/L (20-31); CHLORIDE LEVEL 103.0 MMOL/L (98-107); CREATININE FOR GFR 0.82 MG/DL (0.55-1.30); GLOMERULAR FILTRATION RATE 78.4 (>45); POTASSIUM SERUM 4.3 MMOL/L (3.5-5.1); SODIUM LEVEL 142.0 MMOL/L (136-145)
== END ==
LOC: M SFHCCLAY 08:32
PROVIDERS: ATTEND Family Medicine
DX: D50.8 Other iron deficiency anemias (principal); K52.9 Noninfective gastroenteritis and colitis, unspecified; G62.9 Polyneuropathy, unspecified; E53.8 Deficiency of other specified B group vitamins

== ENCOUNTER 2024-11-10 06:00 | Day surgery (SDC) | payer OTHER, MEDICAID ==
[~2024-11-10] VITALS: Ht 162.6 cm; Wt 81.2 kg
[~2024-11-10 06:00] MED LIST changes: +THERTAB52 PO
[2024-11-10] MEDS ORDERED: ONDANSETRON 4MG 2ML VIAL As Ordered ONE (07:04)
[2024-11-10] MEDS ORDERED: dexAMETHasone 4 MG/ML 1 ML VIAL As Ordered ONE (07:04)
[2024-11-10] MEDS ORDERED: LIDOCAINE 2% 100 MG/5 ML SDV (FOR ANES.) As Ordered ONE (07:04)
[2024-11-10] MEDS ORDERED: MIDAZOLAM INJ 2 MG/2 ML VIAL As Ordered ONE (07:04)
[2024-11-10] MEDS: LR 1,000 ML IV SCH (07:07)
[2024-11-10] MEDS ORDERED: ACETAMINOPHEN 1000MG/100ML IV BAG As Ordered ONE (07:50)
[2024-11-10] MEDS ORDERED: KETOROLAC 30 MG/ML 1 ML VIAL As Ordered ONE (08:31)
[2024-11-10] MEDS ORDERED: LABETALOL 100 MG/20 ML VIAL As Ordered ONE (08:40)
[2024-11-10] MEDS ORDERED: LR 1,000 ML IV SCH (08:50)
[2024-11-10] MEDS: HYDROMORPHONE HCL 0.5 MG/0.5 ML SYRINGE IV PRN (08:58)
[2024-11-10] MEDS: ONDANSETRON 4MG 2ML VIAL IV PRN (08:59)
[2024-11-10 10:40] VITALS: BP 160/83; TEMP 97.2; O2SAT 96
== END 2024-11-10 10:49 | disposition home or self-care (01) ==
LOC: M SDC 06:00
PROVIDERS: ATTEND Orthopaedic Surgery
DX: T84.195A Other mechanical complication of internal fixation device of left femur, initial encounter (principal); Y79.2 Prosthetic and other implants, materials and accessory orthopedic devices associated with adverse incidents; M32.9 Systemic lupus erythematosus, unspecified; E66.01 Morbid (severe) obesity due to excess calories; G62.9 Polyneuropathy, unspecified; F32.A Depression, unspecified; Z79.01 Long term (current) use of anticoagulants; Z79.899 Other long term (current) drug therapy; Z86.718 Personal history of other venous thrombosis and embolism; Z86.711 Personal history of pulmonary embolism; Z68.34 Body mass index [BMI] 34.0-34.9, adult
CPT/HCPCS: 20680; 76000; J0131; J0690; J1100; J1171; J1885; J1920; J2250; J2405; J3010

== ENCOUNTER → 2024-11-23 | Outpatient (CLI) | payer OTHER, MEDICAID | LOC: M SOG 06:59 | PROVIDERS: ATTEND Orthopaedic Surgery | DX: S72.402D Unspecified fracture of lower end of left femur, subsequent encounter for closed fracture with routine healing (principal) ==

== ENCOUNTER → 2025-02-20 | Outpatient (REF) | payer OTHER, MEDICAID ==
[2025-02-20 18:46] LABS: PLATELET COUNT, AUTOMATED 405 10^3/uL (150-450)
[2025-02-20 18:53] LABS: IRON (FE) 18 UG/DL (50-170)
[2025-02-20 18:55] LABS: PERCENT SATURATION 5.5 % (13.2-45.0)
[2025-02-20 18:56] LABS: ALT/SGPT 18 U/L (7.0-40); AST/SGOT 20 U/L (<34); CALCIUM LEVEL 8.9 MG/DL (8.3-10.6); CARBON DIOXIDE LEVEL 30 MMOL/L (20-31); CHLORIDE LEVEL 99 MMOL/L (98-107); CREATININE FOR GFR 0.72 MG/DL (0.55-1.30); GLOMERULAR FILTRATION RATE > 90.0 (>45); POTASSIUM SERUM 4.4 MMOL/L (3.5-5.1); SODIUM LEVEL 135 MMOL/L (136-145)
== END ==
LOC: M SFHCCLAY 11:56
PROVIDERS: ATTEND Family Medicine
DX: D50.8 Other iron deficiency anemias (principal); K52.9 Noninfective gastroenteritis and colitis, unspecified; G62.9 Polyneuropathy, unspecified; Z98.84 Bariatric surgery status

== ENCOUNTER → 2025-03-06 | Outpatient (CLI) | payer OTHER, MEDICAID | LOC: M SOG 07:35 | PROVIDERS: ATTEND Physician Assistant | DX: M25.511 Pain in right shoulder (principal) ==